=== PATIENT | male | born 1985 | race Caucasian/White ===

== ENCOUNTER 2017-04-21 20:50 | Emergency (ER) | payer OTHER ==
[2017-04-21] MEDS ORDERED: traMADol HCl 50 MG TAB ONE (21:03)
--- NOTE | 2017-04-21 21:58 | RAD ---
RIGHT ANKLE RADIOGRAPHS THREE VIEWS: Date: 04-21-17 Provided Clinical History: Right ankle pain status post injury. FINDINGS: There is no evidence for fracture or other acute osseous abnormality. If there is persistent clinical concern, conservative management and follow up imaging are advised. IMPRESSION: As above. POS: [facility]
== END 2017-04-21 22:09 | disposition home or self-care (01) ==
LOC: SCSER 20:50
DX: S93.401A Sprain of unspecified ligament of right ankle, initial encounter (principal); F41.9 Anxiety disorder, unspecified; F31.9 Bipolar disorder, unspecified; F17.210 Nicotine dependence, cigarettes, uncomplicated; X50.9XXA Other and unspecified overexertion or strenuous movements or postures, initial encounter; Y93.21 Activity, ice skating

== ENCOUNTER 2019-05-31 09:24 | Emergency (ER) | payer MEDICAID, SELFPAY ==
[2019-05-31] MEDS ORDERED: Lidocaine 1% w/Epinephrine 1:100K 20 ML VIAL ONE (10:09)
[2019-05-31] MEDS ORDERED: Adacel (T-DAP) 0.5 ML SYRINGE ONE (10:40)
== END 2019-05-31 10:59 | disposition home or self-care (01) ==
LOC: ERS 09:24
DX: L02.412 Cutaneous abscess of left axilla (principal); F41.9 Anxiety disorder, unspecified; F31.9 Bipolar disorder, unspecified; F17.210 Nicotine dependence, cigarettes, uncomplicated; Z23 Encounter for immunization; Z79.899 Other long term (current) drug therapy
CPT/HCPCS: 10060; 90471; 90715

== ENCOUNTER 2019-06-01 18:06 | Emergency (ER) | payer SELFPAY | END 2019-06-01 19:01 | disposition home or self-care (01) | LOC: ERS 18:06 | DX: Z48.817 Encounter for surgical aftercare following surgery on the skin and subcutaneous tissue (principal); F41.9 Anxiety disorder, unspecified; F31.9 Bipolar disorder, unspecified; Z79.899 Other long term (current) drug therapy | CPT/HCPCS: 99282 ==